=== PATIENT | female | born 2005 | race Two or more races ===

== ENCOUNTER 2025-01-03 20:48 | Emergency (ER) | payer OTHER, SELFPAY ==
[~2025-01-03 20:48] MED LIST: Iopamidol 370 76% 100 ML VIAL ONE
[2025-01-03 21:27] LABS: #Basophils 0.2 thou/uL (0.0-0.2); #Eosinophils 0.1 thou/uL (0.0-0.7); #Lymphocytes 2.2 thou/uL (1.20-3.40); #Monocytes 0.6 thou/uL (0.11-0.59); #Neutrophils 4.1 thou/uL (1.40-6.50); %Basophils 2.3 % (0.0-1.0); %Lymphocytes 30.9 % (28.0-48.0); %Monocytes 8.1 % (0.0-4.0); %Neutrophils 56.8 % (31.0-61.0); Hematocrit 37.3 % (36.0-47.0); Hemoglobin 13.1 g/dL (12.0-16.0); Mean Corpuscular HGB CONC 35.2 g/dL (32.0-36.0); Mean Corpuscular Hemoglobin 26.9 pg (25.0-35.0); Mean Corpuscular Volume 76.6 fl (78.0-98.0); Mean Platelet Volume 6.1 fL (7.4-10.4); Platelet Count 332 10x3/uL (130-400); RBC Distribution Width 11.4 % (11.5-14.5); Red Blood Cell (RBC) Count 4.87 mill/uL (4.00-5.20); White Blood Cell (WBC) Count 7.2 10x3/uL (4.8-10.8)
[2025-01-03 21:28] LABS: ALT (SGPT) 17 U/L (Less than 34); AST (SGOT) 57 U/L (11-34); Albumin 5.1 g/dL (3.1-4.5); Alkaline Phosphatase 36 U/L (40-100); Anion Gap 19 mmol/L (10-20); BUN (Urea Nitrogen) 15 mg/dL (7.0-18.7); Bilirubin, Total 0.7 mg/dL (0.3-1.2); Calc. Creatinine Clearance 0 mL/min (70-130); Carbon Dioxide 19 mmol/L (22-29); Chloride 106 mmol/L (98-107); Estimated GFR 127; Globulin 3.6 g/dL (2.4-3.5); Glucose 102 mg/dL (70-105); Potassium 3.4 mmol/L (3.5-5.1); Protein, Total 8.7 g/dL (6.0-8.3); Sodium 141 mmol/L (136-145)
[2025-01-03 21:33] LABS: BHCG - Serum Negative (NEGATIVE); Pregs Control Background? CLEAR/WHITE (CLR/WHITE); Pregs Control Bar Appear? YES (CONTROL BAR)
== END 2025-01-03 22:18 | disposition home or self-care (01) ==
LOC: BURERS 20:48
DX: S00.83XA Contusion of other part of head, initial encounter (principal); V49.9XXA Car occupant (driver) (passenger) injured in unspecified traffic accident, initial encounter
CPT/HCPCS: 70450; 71260; 72125; 74177; 80053; 84703; 85025; G0390; Q9967